=== PATIENT | male | born 1975 | race Hispanic/Latino ===

== ENCOUNTER 2023-12-26 13:24 | Outpatient (CLI) | payer OTHER, SELFPAY ==
--- NOTE | 2023-12-26 | ECG_ITS ---
Test Date: 2023-12-26 13:43:28 Measurements Intervals [place] Rate: 84 P: 63 CA: 137 QRS: 70 QRSD: 86 T: 33 QT: 336 QTc: 398 Interpretive Statements SINUS RHYTHM POSSIBLE LEFT ATRIAL ENLARGEMENT BORDERLINE ECG No previous ECG available for comparison Electronically Signed On 12-26-2023 15:10:47 CDT by Abdoul Caal D.O.
--- NOTE | ~2023-12-26 | XR_ITS ---
Clinical Indication: Palpitations PA and lateral views of the chest: Comparison: None Findings: The lungs are clear, without evidence of focal consolidation or pleural effusion. Cardiome diastinal silhouette is within normal limits. Bones and soft tissues are unremarkable. Impression: Normal chest. Reviewed, dictated and finalized at location . Impression: Normal chest.
== END 2023-12-26 13:25 | disposition home or self-care (01) ==
LOC: ANHCARD 13:30
PROVIDERS: PCP Registered Nurse; Visit Provider Registered Nurse
DX: R00.2 Palpitations (principal); R94.31 Abnormal electrocardiogram [ECG] [EKG]
CPT/HCPCS: 71046; 93005